=== PATIENT | female | born 1945 | race Caucasian/White ===

== ENCOUNTER 2016-09-01 14:22 | Observation (INO) | payer BC, OTHER ==
[~2016-09-01] VITALS: Ht 162.6 cm; Wt 70.0 kg
[2016-09-01] MEDS ORDERED: SOD CHLORIDE 0.9% 1,000 ML IV STA (14:42)
[2016-09-01] MEDS ORDERED: ONDANSETRON 4 MG INJ IV STA (14:42)
[2016-09-01] MEDS ORDERED: MECLIZINE 12.5 MG TAB PO ONE ×2 (15:00→16:00)
[2016-09-01] MEDS ORDERED: LYRI25 PO (15:57)
[2016-09-01] MEDS ORDERED: FENO48TA4 PO (15:57)
[2016-09-01] MEDS ORDERED: LORA1TAB PO (15:58)
[2016-09-01 16:17] LABS: BASOPHILS % 0.2 % (0.0-2.0); EOSINOPHILS % 0.4 % (0.0-7.0); HEMOGLOBIN 15.3 g/dl (12.0-16.0); LYMPHOCYTES % 21.2 % (15.0-51.0); MEAN CORPUSCULAR HEMOGLOBIN 28.7 pg (29.0-33.0); MEAN CORPUSCULAR HGB CONC 33.3 g/dl (32.0-37.0); MEAN CORPUSCULAR VOLUME 86.3 fl (82.0-101.0); MONOCYTE # 0.3 10^3/ul (0.3-0.9); MONOCYTES % 3.3 % (0.0-11.0); NEUTROPHIL # 6.9 10^3/ul (1.6-7.5); NEUTROPHILS % 74.9 % (39.0-77.0); PLATELET COUNT 217 10^3/UL (140-440); RED BLOOD COUNT 5.33 10^6/ul (4.20-5.40); RED CELL DISTRIBUTION WIDTH 13.7 % (11.5-14.5); UNCORRECTED WBC 9.2 10^3/ul (4.8-10.8); WHITE BLOOD COUNT 9.2 10^3/ul (4.8-10.8)
[2016-09-01 16:21] LABS: CONDITION 1
[2016-09-01 16:23] LABS: CHLORIDE 101 mmol/L (97-110)
[2016-09-01 16:24] LABS: ALBUMIN 4.7 g/dl (3.3-4.9); POTASSIUM 3.8 mmol/L (3.5-5.1); SODIUM 142 mmol/L (135-144)
[2016-09-01 16:26] LABS: INR 0.88; PROTIME 11.9 Sec (12.2-14.2); PT RATIO 0.9
[2016-09-01 16:27] LABS: ALANINE AMINOTRANSFERASE 39 IU/L (13-69); ALKALINE PHOSPHATASE 107 IU/L (42-121); AMYLASE 69 U/L (11-123); ANION GAP 18 (8-16); ASPARTATE AMINO TRANSFERASE 32 IU/L (15-46); BILIRUBIN,INDIRECT 0.4 mg/dl (0-1.1); BILIRUBIN,TOTAL 0.4 mg/dl (0.2-1.3); BLOOD UREA NITROGEN 24 mg/dl (7-20); CALCIUM 10.1 mg/dl (8.4-10.2); CARBON DIOXIDE 27 mmol/L (21-31); CREATININE 0.69 mg/dl (0.44-1.00); GLUCOSE 98 mg/dl (70-220); TOTAL PROTEIN 8.3 g/dl (6.1-8.1)
--- NOTE | 2016-09-01 16:36 | RADRPT ---
PROCEDURE: CT Brain without. CLINICAL INDICATION: Headaches and vertigo. TECHNIQUE: A CT of the brain was performed on multidetector high-resolution CT scanner utilizing a xial sections from the skull base through the vertex without contrast. The scan was reviewed in sof t tissue brain and high frequency resolution bone algorithm windows. Images were reviewed on a high -resolution PACS workstation. One or more the following does reduction techniques were utilized: Aut omated exposure control, adjustment of the mA/ or kV according to patient's size, or use of iterativ e reconstruction technique. The exam CTDI = 45.01 mGy and the DLP = 630.2 mGy-cm. COMPARISON: None available. FINDINGS: The ventricles and sulci are mildly prominent indicative of volume loss. There is no intracranial he morrhage, mass effect or midline shift. No abnormal intra-axial or extra-axial fluid collections ar e seen. The campbell/white matter differentiation is preserved. There are mild scattered foci of hypoattenuation in the white matter, which are nonspecific in etiol ogy but likely reflect chronic small vessel ischemic changes. The visualized paranasal sinuses are essentially clear. IMPRESSION: 1. No acute intracranial hemorrhage, transcortical infarction or mass effect. 2. Mild chronic small vessel ischemic changes. 3. Mild generalized cerebral volume loss. RPTAT: HFN .Wiliam Guzmán MD, MD Date Time Electronically viewed and signed by .Wiliam Guzmán MD, MD on 09/01/2016 16:36 .N/
[2016-09-01 16:39] LABS: TROPONIN-I < 0.012 ng/ml (0.00-0.12)
[2016-09-01] MEDS ORDERED: DIAZEPAM 5 MG/ML SYG IV ONE (17:00)
[2016-09-01] MEDS ORDERED: METOCLOPRAMIDE 10 MG INJ IV ONE ×2 (17:00→19:30)
[2016-09-01 18:11] LABS: ADD UMIC YES; URINE BILIRUBIN (Dip) NEGATIVE (NEGATIVE); URINE BLOOD (Dip) TRACE (NEGATIVE); URINE COLOR LT. YELLOW (YELLOW); URINE GLUCOSE (Dip) NEGATIVE (NEGATIVE); URINE KETONES (Dip) NEGATIVE (NEGATIVE); URINE LEUKOCYTE ESTERASE (Dip) NEGATIVE (NEGATIVE); URINE NITRITE (Dip) NEGATIVE (NEGATIVE); URINE TOTAL PROTEIN (Dip) NEGATIVE (NEGATIVE); URINE UROBILINOGEN (Dip) 0.2 E.U./dL (0.1-1.0)
[2016-09-01 18:21] LABS: BACTERIA,URINE MANY; SQUAMOUS EPITHELIAL CELL,UR FEW; URINE RBCS 0-2 /HPF (0)
[2016-09-01] MEDS ORDERED: SCOPOLAMINE 1.5 MG PATCH TRANSDERM ONE (19:00)
[2016-09-01] MEDS ORDERED: LORAZEPAM 2 MG INJ IV ONE (19:00)
--- NOTE | 2016-09-01 19:28 | ERA ---
ER Documentation Chief Complaint Date/Time DATE: 09/01/16 TIME: 19:19 Chief Complaint EXTREME DIZZINESS & PHOTOSENSATIVITY, NO SYNCOPY HPI This is a 71-year-old female with a known history of fibromyalgia that presents to the emergency department complaining of tinnitus and minimal decrease in hearing bilaterally for the past several days. Roughly an hour prior to onset the patient developed a sudden onset of severe dizziness where she felt as though the room was spinning around her. She was also experiencing photophobia. She denies any neck pain. She has had no fevers no shaking or chills. She denies a headache. She denied any syncope or near syncope episode. She states that the for take him his symptoms would improve when she would lie supine and close her eyes and worsened with ambulation. She denies any ear ache or previous symptoms. She denies any chest pain or pressure that radiates to the neck arm back or jaw. She denies any weakness of her upper or lower extremities. The patient states she has felt extremely nauseous but has not experienced any hemoptysis hematemesis or melanotic stools. ROS All systems reviewed and are negative except as per history of present illness. Medications Home Meds Reported Medications Lorazepam* (Lorazepam*) 1 Mg Tablet, 1 MG PO HS Y for ANXIETY, #30 TAB 09/01/16 Fenofibrate Nanocrystallized* (Fenofibrate*) 48 Mg Tablet, 48 MG PO DAILY, TAB 09/01/16 Pregabalin* (Lyrica*) 25 Mg Capsule, 25 MG PO TID, CAP 09/01/16 Allergies Allergies: Coded Allergies: codeine (Unverified Allergy, Unknown, 09/01/16) PMhx/Soc History of Surgery: Yes (HYSTERECTOMY) Anesthesia Reaction: No Hx Neurological Disorder: No Hx Respiratory Disorders: No Hx Cardiac Disorders: Yes (HYPERTRIGLYCERIDES) Hx Psychiatric Problems: No Hx Miscellaneous Medical Probl: No Hx Alcohol Use: No Hx Substance Use: No Hx Tobacco Use: No Smoking Status: Never smoker Physical Exam Vitals Vital Signs Date Time Temp Pulse Resp B/P Pulse Ox O2 Delivery O2 Flow Rate FiO2 09/01/16 18:50 105 18 164/79 100 Room Air 09/01/16 15:00 98.8 80 20 180/90 99 Physical Exam Constitutional:Well-developed. Well-nourished. Patient lying supine in stretcher with her eyes closed and nontoxic in appearance HEENT:Normocephalic. Atraumatic.Pupils were equal round reactive to light. Moist mucous membranes.No tonsillar exudates. Funduscopy exam showed sharp optic disc bilaterally venous pulsations were present. No bulging erythremia of the tympanic membranes bilaterally Neck: No nuchal rigidity. No lymphadenopathy. No posterior cervical spine tenderness or step-offs. Respiratory: Not using accessory muscles of respiration.Lungs were clear to auscultation bilaterally. No rhonchi. No rales. No wheezing. Cardiovascular: Regular rate regular rhythm.No murmurs. No rubs were appreciated.S1, S2 normal. Distal pulses are palpable 2+ bilaterally. GI: Abdomen was soft. Nontender. Non Distended. No pulsatile abdominal masses or bruits. No rebound. No guarding. Bowel sounds were present and normal. Muscle skeletal: Full range of motion of both the upper and lower extremities bilaterally.Normal muscle tone.No assymetrical calf tenderness or swelling. Skin: No petechia, no purpura. No lesions on the palms or the soles of the feet. No maculopapular rash. NEURO: Patient was alert, awake, orientated x3.No facial droop. Gait observed and normal with no ataxia.Speech had regular rate and rhythm. No focal neurological deficits. Fatigable peripheral nystagmus more prominent with gaze to the right than to the left Result Diagram: 09/01/16 1555 09/01/16 1555 Results 24 hrs Laboratory Tests Test 09/01/16 15:55 09/01/16 18:00 Activated Partial Thromboplast Time 28.0Sec Alanine Aminotransferase (ALT/SGPT) 39IU/L Albumin 4.7g/dl Albumin/Globulin Ratio 1.30 Alkaline Phosphatase 107IU/L Amylase Level 69U/L Anion Gap 18 Aspartate Amino Transf (AST/SGOT) 32IU/L Basophils # 0.010^3/ul Basophils % 0.2% Blood Morphology Comment Blood Urea Nitrogen 24mg/dl Calcium Level 10.1mg/dl Carbon Dioxide Level 27mmol/L Chloride Level 101mmol/L Creatinine 0.69mg/dl Direct Bilirubin 0.00mg/dl Eosinophils # 0.010^3/ul Eosinophils % 0.4% Globulin 3.60g/dl Glucose Level 98mg/dl Hematocrit 46.0% Hemoglobin 15.3g/dl INR International Normalized Ratio 0.88 Indirect Bilirubin 0.4mg/dl Lipase 78U/L Lymphocytes # 2.010^3/ul Lymphocytes % 21.2% Mean Corpuscular Hemoglobin 28.7pg Mean Corpuscular Hemoglobin Concent 33.3g/dl Mean Corpuscular Volume 86.3fl Mean Platelet Volume 10.0fl Monocytes # 0.310^3/ul Monocytes % 3.3% Neutrophils # 6.910^3/ul Neutrophils % 74.9% Nucleated Red Blood Cells # 0.010^3/ul Nucleated Red Blood Cells % 0.0/100WBC Platelet Count 29832^3/UL Potassium Level 3.8mmol/L Prothrombin Time 11.9Sec Prothrombin Time Ratio 0.9 Red Blood Count 5.3310^6/ul Red Cell Distribution Width 13.7% Sodium Level 142mmol/L Total Bilirubin 0.4mg/dl Total Protein 8.3g/dl Troponin I < 0.012ng/ml White Blood Count 9.210^3/ul Urine Amorphous Phosphates MODERATE Urine Bacteria MANY Urine Bilirubin NEGATIVE Urine Clarity SLIGHTLY CLOUDY Urine Color LT. YELLOW Urine Glucose NEGATIVE% Urine Hemoglobin TRACE Urine Ketones NEGATIVE Urine Leukocyte Esterase NEGATIVE Urine Microscopic RBC 0-2/HPF Urine Microscopic WBC 0-2/HPF Urine Nitrite NEGATIVE Urine Specific [place] 1.015 Urine Squamous Epithelial Cells FEW Urine Total Protein NEGATIVE Urine Urobilinogen 0.2 E.U./dL Urine pH 8.5 Current Medications Medications (Trade) Dose Ordered Sig/Carol Route PRN Reason Start Time Stop Time Status Last Admin Dose Admin Sodium Chloride (NS) 1,000 ml @ 1,000 mls/hr Q1H STAT IV 09/01/16 14:42 09/01/16 15:41 DC 09/01/16 15:24 Ondansetron HCl (Zofran Inj) 4 mg ONCE STAT IV 09/01/16 14:42 09/01/16 14:45 DC 09/01/16 15:24 Meclizine HCl (Antivert) 25 mg ONCE ONCE PO 09/01/16 15:00 09/01/16 15:01 DC Meclizine HCl (Antivert) 25 mg ONCE ONCE PO 09/01/16 16:00 09/01/16 16:01 DC 1/31/17 16:02 Metoclopramide HCl (Reglan) 10 mg ONCE ONCE IV 09/01/16 17:00 09/01/16 17:01 DC 09/01/16 17:08 Diazepam (Valium) 5 mg ONCE ONCE IV 09/01/16 17:00 09/01/16 17:01 DC 09/01/16 17:08 Lorazepam (Ativan) 1 mg ONCE ONCE IV 09/01/16 19:00 09/01/16 19:01 DC 09/01/16 19:15 Scopolamine (Transderm-Scop) 1 patch ONCE ONCE TRANSDERM 09/01/16 19:00 09/01/16 19:01 DC Ondansetron HCl (Zofran Inj) 4 mg BRIDGE ORDER PRN IV NAUSEA AND/OR VOMITING 09/01/16 19:30 09/02/16 19:29 Acetaminophen (Tylenol Tab) 650 mg ER BRIDGE PRN PO MILD PAIN/FEVER 09/01/16 19:30 09/02/16 19:29 Metoclopramide HCl (Reglan) 10 mg ONCE ONCE IV 09/01/16 19:30 09/01/16 19:31 Procedures/MDM This patient was seen and evaluated by myself. The patient presented to the emergency department complaining of dizziness. My differential diagnosis included but was not limited to hypovolemia, myocardial infarction, pulmonary embolism, hypoglycemia, hypoxia, anemia, vasovagal episode, hypothyroidism, anxiety, peripheral or central vertigo. The patient was placed on a trade union official, continuous pulse oximetry and IV access established by nursing staff. The patient's physical exam findings did appear to be a result of peripheral vertigo. She did receive Antivert Zofran IV fluids with no improvement of her symptoms and therefore was given IV Valium. The patient stated the vertigo had slightly improved but when she attempted to ambulate it worsened where she felt she was going to pass out. Therefore I did obtain a CT scan of the head which showed no evidence of intracerebral hemorrhage or mass-effect. Observation Note: Time: 6 hours Family Hx: No Hypertension Evaluation: Multiple exams showed only minimal improvement of her symptoms and therefore I did feel required admission for intractable vertigo The patient had received further doses of analgesic medication which included Reglan. She also received Ativan and a Transderm-Scop patch was applied to help with improvement of her symptoms. I obtained a 12-lead EKG tracing to rule out atypical myocardial infarction. 12 Lead EKG tracing ordered and reviewed by myself showed: Normal sinus rhythm of 92 bpm and no arrhythmia. IN interval normal. QRS duration normal. No ST segment elevation No ST segment depression. No changes consistent with acute ischemia. The patient will be admitted to observation to the hospitalist to the medical surgical floor Departure Diagnosis: Primary Impression: Intractable nausea and vomiting Qualified Code: R11.2 - Intractable vomiting with nausea, unspecified vomiting type Additional Impressions: Peripheral vertigo of both ears Labyrinthitis of both ears Condition: Serious MILLIE TAYLOR Sep 01, 2016 19:28
[2016-09-01] MEDS ORDERED: ACETAMINOPHEN 325 MG TAB PO PRN ×2 (19:30→22:00)
[2016-09-01] MEDS ORDERED: ONDANSETRON 4 MG INJ IV PRN ×2 (19:30→22:00)
[2016-09-01] MEDS ORDERED: MECLIZINE 12.5 MG TAB PO PRN (22:00)
[2016-09-01] MEDS ORDERED: LORAZEPAM 1 MG TAB PO PRN (22:00)
[2016-09-01] MEDS ORDERED: NACL 0.9% 3 ML SYG IV SCH (22:00)
[2016-09-01 22:25] VITALS: BP 154/74; PULSE 103; RESP 21
[2016-09-01 22:37] VITALS: Ht 162.6 cm; Wt 70.0 kg
[2016-09-01] MEDS: MECLIZINE 25 MG TAB PO PRN (23:21)
[2016-09-02 06:11] LABS: BASOPHILS % 0.4 % (0.0-2.0); EOSINOPHILS # 0.1 10^3/ul (0.0-0.5); HEMATOCRIT 38.4 % (37.0-47.0); HEMOGLOBIN 12.9 g/dl (12.0-16.0); LYMPHOCYTES # 2.4 10^3/ul (0.8-2.9); LYMPHOCYTES % 31.8 % (15.0-51.0); MEAN CORPUSCULAR HEMOGLOBIN 29.1 pg (29.0-33.0); MEAN CORPUSCULAR HGB CONC 33.8 g/dl (32.0-37.0); MEAN CORPUSCULAR VOLUME 86.1 fl (82.0-101.0); MEAN PLATELET VOLUME 9.1 fl (7.4-10.4); MONOCYTE # 0.5 10^3/ul (0.3-0.9); MONOCYTES % 6.8 % (0.0-11.0); NEUTROPHIL # 4.4 10^3/ul (1.6-7.5); PLATELET COUNT 200 10^3/UL (140-440); RED BLOOD COUNT 4.46 10^6/ul (4.20-5.40); RED CELL DISTRIBUTION WIDTH 12.9 % (11.5-14.5); UNCORRECTED WBC 7.4 10^3/ul (4.8-10.8); WHITE BLOOD COUNT 7.4 10^3/ul (4.8-10.8)
[2016-09-02 06:35] LABS: CONDITION 1
[2016-09-02 06:53] LABS: ALBUMIN 3.9 g/dl (3.3-4.9)
[2016-09-02 06:54] LABS: POTASSIUM 3.5 mmol/L (3.5-5.1)
[2016-09-02 06:56] LABS: ALBUMIN/GLOBULIN RATIO 1.5; BILIRUBIN,INDIRECT 0.3 mg/dl (0-1.1); BILIRUBIN,TOTAL 0.3 mg/dl (0.2-1.3); CREATININE 0.61 mg/dl (0.44-1.00); TOTAL PROTEIN 6.5 g/dl (6.1-8.1)
[2016-09-02 06:57] LABS: CALCIUM 9.1 mg/dl (8.4-10.2); CHOL/HDL RATIO 4.3 RATIO; MAGNESIUM 1.7 mg/dl (1.7-2.5); PHOSPHORUS 2.8 mg/dl (2.5-4.9)
[2016-09-02 07:20] LABS: THYROID STIMULATING HORMONE 1.63 MIU/L (0.465-4.680)
[2016-09-02 07:57] VITALS: BP 144/67; RESP 18
[2016-09-02] MEDS: PREGABALIN 25 MG CAP PO SCH ×2 (08:28→12:36)
[2016-09-02] MEDS ORDERED: METOPROLOL 25 MG TAB PO SCH (09:00)
[2016-09-02] MEDS ORDERED: FENOFIBRATE 48 MG TAB PO SCH (09:00)
[2016-09-02] MEDS ORDERED: ENOXAPARIN 40 MG/0.4 ML SYG SC SCH (09:00)
--- NOTE | 2016-09-02 09:13 | HP ---
DATE OF ADMISSION: 09/01/2016 TIME SEEN: 0 CHIEF COMPLAINT: Dizziness. HISTORY OF PRESENT ILLNESS: The patient is a 71-year-old female with a history of dyslipidemia, fib romyalgia who presented to the emergency department with dizziness, ringing in the ear, "room spinni ng around her." She also reported that light has been bothering her. The ringing in her ear as wel l as mild decreased hearing in both of her ears started a few days ago and a few hours prior to pres entation to the ER, she experienced severe dizziness and felt as if the room was spinning around her . She denied headache, loss of consciousness, trauma, chest pain, shortness of breath, fever, or ch ills. She did, however, report nausea and actually on her way to the hospital she vomited nonbiliou s, nonbloody emesis. When she presented to the ER, blood pressure was 180/90. Otherwise, the rest of her vitals were sta ble. CT of the brain was done and it showed mild chronic small vessel ischemic change and mild gene ralized cerebral volume loss, otherwise no acute hemorrhage, infarct, or mass effect. Laboratory va lues show a BUN of 24. Otherwise, CBC and CMP are unremarkable. The patient was given meclizine, R eglan, Tylenol, Ativan, Valium, Zofran, a liter of normal saline as well as meclizine while she was in the ER. REVIEW OF SYSTEMS: A 12-point review of systems was performed and is negative except as mentioned i n the HPI. PAST MEDICAL HISTORY: As per HPI. PAST SURGICAL HISTORY: Hysterectomy, breast augmentation. SOCIAL HISTORY: Denies history of alcohol or illicit drug use. ALLERGIES: CODEINE. HOME MEDICATIONS: 1. Fenofibrate. 2. Ativan. 3. Lyrica. PHYSICAL EXAMINATION: VITAL SIGNS: Blood pressure 154/74, heart rate 103, respiratory rate 21, temperature 97.6, oxygen s aturation 96% on room air. GENERAL: Sleepy but arousable, answering questions appropriately. HEENT: No obvious head deformity. Pupils reactive to light. Extraocular muscles intact. Hearing grossly intact. No discharge was noted from her ear. External manipulation of her ear did not elic it any pain. CARDIOVASCULAR: Tachycardic with regular rhythm. LUNGS: Clear. ABDOMEN: Soft, nontender, nondistended. Positive bowel sounds. EXTREMITIES: No edema. NEUROLOGIC: No focal deficits. LABORATORY: BUN 24. Otherwise, CBC and CMP within normal limits. IMAGING: CT of the brain with results as mentioned in the HPI. IMPRESSION: 1. Vertigo, likely secondary to benign paroxysmal positional vertigo. 2. Hypertension. 3. History of fibromyalgia. 4. History of anxiety. PLAN: A head CT was done with no acute findings. We will obtain MRI of the brain to evaluate for a ny intracranial abnormality. She will be continued on meclizine for now. Given the severity of her symptom, we will place a neurology consult. She will be placed on antihypertensive with adjustment as needed and will be continued with her home medication. Further workup and management per clinical course. Dictated By: NILESH DE SANTIAGO/ARACELIS Conf#: [id number] DID#: [id number]
[2016-09-02 10:42] VITALS: BP 144/67; RESP 18
[2016-09-02] MEDS: MECLIZINE 25 MG TAB PO PRN ×2 (12:36→17:32)
--- NOTE | 2016-09-02 13:09 | RADRPT ---
Echocardiogram Report Patient Name: DENNYS MONROY Gender: Female Date: 1945 Study Date: 02-Sep-2016 Shading Painter: [facility] Location: [facility] Ref. Physician: NILESH ROBLES Quality: Good Procedures: Transthoracic echocardiogram with complete 2D, M-Mode, and doppler examination. Indications: Vertigo. 2D/M Mode Doppler Measurement Value Normal Ranges Measurement Value Normal Ranges LVIDd 2D 4.6 3.5 - 5.6 cm AV Peak Lauri 1.8 m/sec LVIDs 2D 2.4 2.1 - 4.1 cm AV Peak PG 13.0 mmHg FS 2D 46.6 % LVOT Peak Lauri 1.1 m/sec LVPWd 2D 0.8 0.6 - 1.1 cm LVOT Peak PG 5.0 mmHg IVSd 2D 0.8 0.6 - 1.1 cm MV E Peak Lauri 0.8 m/sec IVS/LVPW 2D 1.0 MV A Peak Lauri 0.9 m/sec AoR Diam 2D 2.3 2.0 - 3.7 cm MV E/A 0.8 LA/Ao 2D 1 0 - 1 MV Decel Time 162 msec EDV 2D 95.4 cm3 MV E/A 0.8 ESV 2D 14.5 cm3 TR Peak Lauri 2.2 m/sec LA Dimen 2D 3.1 2.3 - 4.0 cm TR Peak PG 19.0 mmHg RVSP 22.0 mmHg Findings Left Ventricle: Normal left ventricular systolic function. Normal left ventricular cavity size. Normal left ventricular wall thickness. Ejection fraction is visually estimated at 60 %. Tissue Doppler/Mitral Doppler indices are consistent with impaired relaxation (Stage I diastolic dysfunction). Right Ventricle: Normal right ventricular size. Normal right ventricular systolic function. Left Atrium: The left atrium is normal in size. Right Atrium: The right atrium is normal in size. Mitral Valve: Mitral valve leaflets appear mildly thickened. Mild mitral annular calcification. Trace mitral regurgitation. Aortic Valve: Normal appearance of the aortic valve. No significant aortic stenosis or insufficiency. Tricuspid Valve: Normal appearance of the tricuspid valve. Estimated peak PA systolic pressure 22 mmHg. There is trace tricuspid regurgitation. Pericardium: Normal pericardium with no significant pericardial effusion. Aorta: Normal aortic root. IVC: Normal size and normal respiratory collapse consistent with normal right atrial pressure. Conclusions 1.Normal left ventricular systolic function. Normal left ventricular cavity size. Normal left ventricular wall thickness. Ejection fraction is visually estimated at 60 %. Tissue Doppler/Mitral Doppler indices are consistent with impaired relaxation (Stage I diastolic dysfunction). 2.Mitral valve leaflets appear mildly thickened. Mild mitral annular calcification. Trace mitral regurgitation. 3.Normal appearance of the tricuspid valve. Estimated peak PA systolic pressure 22 mmHg. There is trace tricuspid regurgitation. Electronically Signed By: Carlos Jacobo 02-Sep-2016 13:08:11 -0800 Patient Name: DENNYS MONROY Study Date: 02-Sep-2016 [id number]
--- NOTE | 2016-09-02 15:32 | PDOCDIS ---
Discharge Instructions CONDITION Patient Condition: Stable HOME CARE INSTRUCTIONS: Diet Instructions: Reduced Sodium ACTIVITY: Activity Restrictions: Slowly Increase Activity Rest between Activity Do not Drive Avoid Heavy Housework FOLLOW UP/APPOINTMENTS Appointments Follow up with PCP in one week FOllow up with Neurology as out-pt INA VANESSA MD Sep 02, 2016 15:32
[2016-09-02] MEDS ORDERED: MECL-77 PO (15:34)
[2016-09-02] MEDS ORDERED: METO-448 PO (15:34)
--- NOTE | 2016-09-02 17:34 | RADRPT ---
PROCEDURE: MR Brain noncontrast. CLINICAL INDICATION: Vertigo. Evaluate for intracranial mass. TECHNIQUE: Multiplanar multisequence noncontrast MRI of the brain was performed. COMPARISON: Noncontrast CT of the head from September 01, 2016. FINDINGS: There is minimal generalized cerebral volume loss. There are mild to moderate scattered bilateral subcortical and periventricular T2 hyperintensities s uggesting chronic microvascular ischemic changes. There is no acute infarction. There is no intracranial hemorrhage or extra-axial fluid collection. There is no mass effect. There is no midline shift. The brainstem is within normal limits. The posterior fossa is unremarkable. The normal intracranial, intravascular flow voids are preserved. The visualized paranasal sinuses are well aerated. The orbits are grossly unremarkable. There is no destructive osseous lesion. IMPRESSION: 1. No acute infarction or intracranial hemorrhage. 2. Mild to moderate chronic microvascular ischemic changes. 3. Minimal generalized cerebral volume loss. Further findings as detailed above. RPTAT: PP .Jorge Guzman MD, MD Date Time Electronically viewed and signed by .Jorge Guzman MD, on 09/02/2016 17:34 .F/
--- NOTE | 2016-09-02 23:42 | DS ---
DATE OF ADMISSION: 09/01/2016 DATE OF DISCHARGE: 09/02/2016 CONSULTANTS: None. IMAGIN. CAT scan of the brain. 1. MRI of the brain did not show any acute finding. No sign of mass. No acute CVA. A 2D echocardio gram demonstrated normal ejection fraction of 60%, normal left ventricular systolic function, normal left ventricle cavity size, normal left ventricle wall thickness, ejection fraction 60%, stage I di astolic dysfunction, no significant valvular dysfunction. DISCHARGE DIAGNOSES: 1. Vertigo, likely secondary to benign paroxysmal positional vertigo. The patient has been placed on meclizine in case if discontinues to happen patient is to follow up with neurology and ENT. 2. Essential hypertension, new finding. Patient has been started on metoprolol. 3. History of fibromyalgia. Continue Lyrica. 4. Anxiety. Continue lorazepam. MEDICATIONS: 1. Fenofibrate. 2. Meclizine. 3. Metoprolol. 4. Lyrica. 5. Lorazepam. ALLERGIES: CODEINE. HOSPITAL COURSE: This is a 71-year-old female with past medical history of dyslipidemia, fibromyalg ia who presented to the emergency room secondary to having dizziness and ringing in the ears and whit m spinning around her. This has been bothering her for the past week. She also reported to that th e light has been bothering her, the ringing in her ears, as well as decreased hearing in both ears s tarted a few days ago. A few hours prior to presenting to ER she experienced severe dizziness and fe lt the room was spinning around her. She denied having headache, loss of consciousness, change in v isual acuity, diplopia, photophobia, chest pain, shortness of breath, fever, chills, or any other di scomfort. CT of the brain was obtained in the course of emergency room which did not show any acute finding. Patient was set up to have an MRI of the brain which the prelim reading did not show any acute finding, no masses, no acute CVA or any other acute finding. The 2D echocardiogram was found t o have normal ejection fraction. Patient was found to have elevated blood pressure with a blood pre ssure of 164/79 and 143/76. The patient was found to be tachycardic at 105. The patient has been st arted on metoprolol 25 mg p.o. b.i.d. Her blood pressure has been improving, although secondary to her history of dizziness and lightheadedness we do not want to decrease her blood pressure too fast so at this time, the patient's blood pressure is controlled at 144/67. At this time, patient denies having any headache, dizziness, lightheadedness or ringing in the ear. Has improved significantly and she is not dizzy. She is medically stable for discharge. LABORATORY DATA: Sodium 142, potassium 3.5, chloride 105, bicarbonate 26, BUN 18, creatinine 0.61, g lucose 98. Hemoglobin A1c 5.6, calcium 9.1. LFTs all within normal limits. 126, total cholesterol 223, LDL 147, HDL 51. TSH normal at 1.630. CONDITION AT TIME OF DISCHARGE: Stable. Total amount of time was spent for evaluation of patient and discharge workup 40 minutes. Dictated By: INA BELL/ARACELIS Conf#: [id number] DID#: [id number]
== END 2016-09-02 17:47 | disposition home or self-care (01) ==
LOC: E/R 14:22 → PP2 19:03 → UNDOADMOB 19:03 → PP2 22:14
PROVIDERS: ADMIT Internal Medicine; ATTEND Internal Medicine
DX: H81.10 Benign paroxysmal vertigo, unspecified ear (principal); I10 Essential (primary) hypertension; F41.9 Anxiety disorder, unspecified
CPT/HCPCS: 36415; 70450; 70551; 80053; 80061; 81001; 82150; 83036; 83690; 83735; 84100; 84443; 84484; 85025; 85610; 85730; 93005; 93306; 96372; 96374; 96375; 96376; 99285; G0378; J1650; J2060; J2405; J2765; J3360; J7030; 81003